=== PATIENT | male | born 1975 | race American Indian/Alaskan Native ===

== ENCOUNTER 2017-01-27 20:07 | Emergency (ER) | payer SELFPAY ==
--- NOTE | 2017-01-27 20:40 | C.PDOC ---
History Of Present Illness 41 yr old male presents to the ER stating "I want my head check". Patient states he has been binging on PCP, Etoh and marijuana "all week". Patient states "my head felt cloudy and locked up" for the past several days but has now resolved. Patient denies SI, HI, SA, chest pain, SOB, nausea, vomiting, weakness or numbness. "I WANT MY HEAD CHECKED". PS BINGING ON PCP, ETOH AND MARIJUANA "ALL WEEK". PS "MY HEAD FELT CLOUDY AND LOCKED UP" X SEV DAYS NOW RESOLVED. DENIES SI, SA EXAM PSYCH CALM COOPERATIVE NO ACTIVE PSYCHOSIS, SI/SA NEURO NO FOCAL DEF GAIT WNL REMAINDER NEG Time Seen by Provider: 01/27/17 20:22 Chief Complaint (Nursing): Substance Abuse History Per: Patient History/Exam Limitations: no limitations Onset/Duration Of Symptoms: Days Suicide/Self Injury Attempted (Context): None Modifying Factor(s): Alcohol, Marijuana Past Medical History Reviewed: Historical Data, Nursing Documentation, Vital Signs Vital Signs: Last Vital Signs Temp 98.7 F 01/27/17 20:13 Pulse 78 01/27/17 20:13 Resp 18 01/27/17 20:13 BP 155/83 H 01/27/17 20:13 Pulse Ox 99 01/27/17 21:28 Family History: States: No Known Family Hx - Social History Hx Tobacco Use: Yes Hx Alcohol Use: Yes Hx Substance Use: Yes - Immunization History Hx Tetanus Toxoid Vaccination: No Hx Influenza Vaccination: No Hx Pneumococcal Vaccination: No Review Of Systems Except As Marked, All Systems Reviewed And Found Negative. Cardiovascular: Negative for: Chest Pain Respiratory: Negative for: Shortness of Breath Gastrointestinal: Negative for: Nausea, Vomiting Neurological: Negative for: Weakness, Numbness Physical Exam - Physical Exam Appears: Non-toxic, No Acute Distress Skin: Warm, Dry, No Rash Head: Atraumatic, Normacephalic Oral Mucosa: Moist Respiratory: Normal Breath Sounds, No Rales, No Rhonchi, No Stridor, No Wheezing Extremity: Normal ROM, No Swelling Neurological/Psych: Oriented x3, Normal Speech, Normal Motor, Normal Sensation, Other (Calm. Cooperative. No active psychosis, SI/SA.) Gait: Steady ED Course And Treatment - Laboratory Results Result Diagrams: 01/27/17 21:05 01/27/17 21:05 O2 Sat by Pulse Oximetry: 99 (RA) Pulse Ox Interpretation: Normal - CT Scan/US CT - Head Other Rad Studies (CT/US): Read By Radiologist, Radiology Report Reviewed CT/US Interpretation: EXAM: CT Head Without Intravenous Contrast. CLINICAL HISTORY: 41 years old, male; Signs and symptoms; Altered mental status/memory loss; Additional info: AMS. TECHNIQUE: Axial computed tomography images of the head/brain without intravenous contrast. All CT scans at. this facility use one or more dose reduction techniques, viz.: automated exposure control; ma/ kV. adjustment per patient size (including targeted exams where dose is matched to indication; i.e. head);. or iterative reconstruction technique. COMPARISON: No relevant prior studies available. FINDINGS: Brain: Mild atrophy. No intracranial hemorrhage. No mass. No definite edema. Ventricles: No hydrocephalus. Bones/joints: No acute fracture. Soft tissues: Unremarkable. Sinuses: No acute sinusitis. Mastoid air cells: No mastoid effusion. Orbits: Unremarkable as visualized. IMPRESSION: 1. No acute intracranial abnormality. 2. Incidental/non-acute findings are described above. Progress - Re-Evaluation Re-evaluation Note: 01/27/17 21:55 CALM COOPERATIVE NO ACUTE INTOX. - Data Reviewed Data Reviewed: Lab, Diagnostic imaging, Old records Medical Decision Making Medical Decision Making: PLAN: * CT - Head * Alcohol Serum * Drug Screen * CBC * CMP * Urinalysis Disposition Counseled Patient/Family Regarding: Studies Performed, Diagnosis, Need For Followup - Disposition Referrals: Pending Sale To [facility] [Outside] [facility] [place] [Outside] Disposition: HOME/ ROUTINE Disposition Time: 21:56 Condition: IMPROVED Instructions: Polysubstance Abuse (ED) Forms: [employer] (Bengali) - Clinical Impression Clinical Impression: Polysubstance abuse - Scribe Statement The provider has reviewed the documentation as recorded by the Willieibe Cheryle Polo Provider Attestation: All medical record entries made by the Fiona were at my direction and personally dictated by me. I have reviewed the chart and agree that the record accurately reflects my personal performance of the history, physical exam, medical decision making, and the department course for this patient. I have also personally directed, reviewed, and agree with the discharge instructions and disposition.
[2017-01-27 21:08] LABS: BASO # 0.1 K/uL (0.0-0.2); BASO % 1.1 % (0.0-2.0); EOS % 0.8 % (0.0-4.0); HEMATOCRIT 41.4 % (35.0-51.0); LYMPH # 1.2 K/uL (1.0-4.3); LYMPH % 25.5 % (20.0-40.0); MEAN CELL VOLUME 97.4 fL (80.0-94.0); MEAN CORPUSCULAR HEMOGLOBIN 33.7 pg (27.0-31.0); MEAN CORPUSCULAR HGB CONC 34.6 g/dL (33.0-37.0); MONO # 0.8 K/uL (0.0-0.8); MONO % 16.7 % (0.0-10.0); NRBC % 0.1 % (0.0-2.0); RED CELL DISTRIBUTION WIDTH 14.4 % (11.5-14.5); WHITE BLOOD COUNT 4.8 K/uL (4.8-10.8)
[2017-01-27 21:16] LABS: RBC URINE 1 /hpf (0-3); URINE BACTERIA RARE (<OCC); URINE BILIRUBIN NEGATIVE (NEGATIVE); URINE BLOOD NEGATIVE (NEGATIVE); URINE COLOR Yellow (YELLOW); URINE GLUCOSE (UA) NORMAL (Normal); URINE KETONE NEGATIVE (NEGATIVE); URINE LEUKOCYTE ESTERASE NEG Leu/uL (Negative); URINE PROTEIN 1+ mg/dL (NEGATIVE); URINE UROBILINOGEN NORMAL mg/dL (0.2-1.0); WBC URINE 5 /hpf (0-5)
[2017-01-27 21:21] LABS: ALB/GLOB RATIO 1.4 (1.0-2.1); ALCOHOL SERUM 101 mg/dl (0-10); ALKALINE PHOSPHATASE 55 U/L (38-126); ALT/SGPT 41 U/L (21-72); AST/SGOT 55 U/L (17-59); BILIRUBIN,TOTAL 0.7 mg/dL (0.2-1.3); BLOOD UREA NITROGEN 8 mg/dL (9-20); CALCIUM 8.6 mg/dl (8.6-10.4); CARBON DIOXIDE 23 mmol/L (22-30); CHLORIDE 103 mmol/L (98-107); GFR AFRICAN-AMERICAN > 60; GLUCOSE,RANDOM 81 mg/dL (75-110); POTASSIUM 3.8 mmol/L (3.6-5.2); SODIUM 137 mmol/L (132-148); TOTAL PROTEIN 7.7 g/dL (6.3-8.3)
--- NOTE | 2017-01-27 21:27 | CT ---
EXAM: CT Head Without Intravenous Contrast CLINICAL HISTORY: 41 years old, male; Signs and symptoms; Altered mental status/memory loss; Additional info: AMS TECHNIQUE: Axial computed tomography images of the head/brain without intravenous contrast. All CT scans at this facility use one or more dose reduction techniques, viz.: automated exposure control; ma/kV adjustment per patient size (including targeted exams where dose is matched to indication; i.e. head); or iterative reconstruction technique. COMPARISON: No relevant prior studies available. FINDINGS: Brain: Mild atrophy. No intracranial hemorrhage. No mass. No definite edema. Ventricles: No hydrocephalus. Bones/joints: No acute fracture. Soft tissues: Unremarkable. Sinuses: No acute sinusitis. Mastoid air cells: No mastoid effusion. Orbits: Unremarkable as visualized. IMPRESSION: 1. No acute intracranial abnormality. 2. Incidental/non-acute findings are described above.
[2017-01-27 22:12] VITALS: BP 145/80; PULSE 75; RESP 16; TEMP 98; O2SAT 98
== END 2017-01-27 22:14 | disposition home or self-care (01) ==
LOC: C.ER 20:07
DX: F19.10 Other psychoactive substance abuse, uncomplicated (principal)
CPT/HCPCS: 70450; 80053; 81001; 85025; 99283; G0480

== ENCOUNTER 2017-08-16 09:37 | Emergency (ER) | payer OTHER ==
[2017-08-16 09:45] VITALS: BP 123/77; PULSE 106; RESP 20; TEMP 99.3; O2SAT 98
--- NOTE | 2017-08-16 10:08 | C.PDOC ---
History Of Present Illness Patient presents to ED c/o numbness in his right foot for approx 6 years. He states he fell and injured his right foot 6 years ago, was not evaluated by doctor/hospital at the time. Since then he has experienced numbness. He denies new injuries/falls, rash, fever, calf pain/tenderness, foot/ankle pain. Time Seen by Provider: 08/16/17 09:46 Chief Complaint (Nursing): Lower Extremity Problem/Injury History Per: Patient History/Exam Limitations: no limitations Onset/Duration Of Symptoms: Other (6 years ) Current Symptoms Are (Timing): Still Present Severity: Mild Past Medical History Reviewed: Historical Data, Nursing Documentation, Vital Signs Vital Signs: Last Vital Signs Temp 99.3 F 08/16/17 09:42 Pulse 106 H 08/16/17 09:42 Resp 20 08/16/17 09:42 BP 123/77 08/16/17 09:42 Pulse Ox 98 08/16/17 10:08 - Medical History PMH: No Chronic Diseases Family History: States: No Known Family Hx - Social History Hx Tobacco Use: Yes Hx Alcohol Use: Yes Hx Substance Use: Yes - Immunization History Hx Tetanus Toxoid Vaccination: No Hx Influenza Vaccination: No Hx Pneumococcal Vaccination: No Review Of Systems Constitutional: Negative for: Fever, Chills Cardiovascular: Negative for: Chest Pain Respiratory: Negative for: Shortness of Breath Gastrointestinal: Negative for: Nausea, Vomiting Skin: Negative for: Rash Neurological: Positive for: Numbness (right foot numbness). Negative for: Weakness Physical Exam - Physical Exam Appears: Well, Non-toxic, No Acute Distress Skin: Normal Color, Warm, Dry, No Rash Cardiovascular: Rhythm Regular Respiratory: Normal Breath Sounds, No Rales, No Rhonchi, No Wheezing Extremity: Normal ROM, No Tenderness, No Pedal Edema, No Calf Tenderness, Capillary Refill (< 2 sec all digits ), No Deformity Extremity: Bilateral: Atraumatic, Normal Color And Temperature, Normal ROM Pulses: Left Dorsalis Pedis: Normal, Right Dorsalis Pedis: Normal Neurological/Psych: Oriented x3, Normal Motor, No Normal Sensation (mildly decreased sensation right medial foot ) Gait: Steady ED Course And Treatment O2 Sat by Pulse Oximetry: 98 (RA) Pulse Ox Interpretation: Normal Progress Note: Patient instructed to follow up with podiatry within 1 week for his chronic right foot numbness. He understands he should return to Ed if his symptoms worsen. Disposition Counseled Patient/Family Regarding: Diagnosis, Need For Followup - Disposition Referrals: Podiatry Clinic [Outside] Disposition: HOME/ ROUTINE Disposition Time: 10:10 Condition: STABLE Additional Instructions: FOLLOW UP WITH PODIATRY WITHIN 1 WEEK RETURN TO ER IF SYMPTOMS WORSEN Instructions: Paresthesias (DC) Forms: [employer] (Telugu) Print Language: BENGALI - Clinical Impression Clinical Impression: Paresthesia of right foot
== END 2017-08-16 10:14 | disposition home or self-care (01) ==
LOC: C.ER 09:37
DX: R20.2 Paresthesia of skin (principal)

== ENCOUNTER 2018-04-24 12:05 | Emergency (ER) | payer MEDICAID, OTHER ==
[2018-04-24 12:13] VITALS: TEMP 99.1; O2SAT 97
[2018-04-24] MEDS ORDERED: Sodium Chloride 0.9% 1,000 ML IV STA (13:13)
--- NOTE | 2018-04-24 13:19 | C.PDOC ---
History Of Present Illness 42 y/o M p/w lightheadedness x 1 day. Denies LOC, chest pain, dyspnea, bleeding, vomiting. States does not eat much typically. Had juice in ED, states feels better now without symptoms. Time Seen by Provider: 04/24/18 12:35 Chief Complaint (Nursing): Dizziness/Lightheaded Past Medical History Vital Signs: Last Vital Signs Temp 99.1 F 04/24/18 12:07 Pulse 97 H 04/24/18 12:07 Resp 18 04/24/18 12:07 BP 120/77 04/24/18 12:07 Pulse Ox 97 04/24/18 12:07 - Medical History PMH: Denies: Diabetes, Hepatitis, HIV, HTN, Chronic Kidney Disease, Seizures, Sexually Transmitted Disease Family History: States: No Known Family Hx - Social History Hx Tobacco Use: Yes Hx Alcohol Use: Yes Hx Substance Use: Yes - Immunization History Hx Tetanus Toxoid Vaccination: No Hx Influenza Vaccination: No Hx Pneumococcal Vaccination: No Review Of Systems Except As Marked, All Systems Reviewed And Found Negative. Constitutional: Negative for: Fever Cardiovascular: Negative for: Chest Pain Physical Exam - Physical Exam Additional Physical Exam Comments: Constitutional: No acute distress. Head: Normocephalic. Atraumatic. Eyes: PERRL. ENT: Moist mucous membranes. Neck: Supple. Cardiovascular: Regular rate. Radial pulse 2+ bilaterally. Chest: No tenderness. Respiratory: Clear to auscultation bilaterally. GI: Soft. Nontender. Nondistended. Back: No CVA tenderness. Musculoskeletal: No tenderness or swelling of extremities. Skin: No rash. Neurologic: Alert, no focal deficit. ED Course And Treatment - Laboratory Results Result Diagrams: 04/24/18 13:23 04/24/18 13:23 O2 Sat by Pulse Oximetry: 97 Medical Decision Making Medical Decision Making: EKG NSR 85 bpm, no ST/T wave changes. Discharged home, f/u primary care, return to ED for worsening pain, dyspnea, LOC, vomiting, or any other problem. Disposition - Disposition Referrals: [facility] [Outside] Disposition: HOME/ ROUTINE Disposition Time: 14:10 Condition: STABLE Instructions: Near Fainting Forms: [employer] (Cayman) [employer] (Latvian) - Clinical Impression Clinical Impression: Lightheaded
[2018-04-24] MEDS ORDERED: Sodium Chloride 0.9% 1,000 ML ONE (13:25)
[2018-04-24 13:26] LABS: BASO # 0.1 K/uL (0.0-0.2); BASO % 1.3 % (0.0-2.0); EOS % 0.5 % (0.0-4.0); HEMOGLOBIN 12.6 g/dL (12.0-18.0); LYMPH # 1.9 K/uL (1.0-4.3); LYMPH % 32.1 % (20.0-40.0); MEAN CORPUSCULAR HEMOGLOBIN 31.8 pg (27.0-31.0); MEAN CORPUSCULAR HGB CONC 33.7 g/dL (33.0-37.0); MEAN PLATELET VOLUME 10.1 fL (7.2-11.7); MONO # 0.4 K/uL (0.0-0.8); MONO % 7.2 % (0.0-10.0); NEUT # 3.4 K/uL (1.8-7.0); NEUT % 58.9 % (50.0-75.0); RBC 3.98 Mil/uL (4.40-5.90); RED CELL DISTRIBUTION WIDTH 14.2 % (11.5-14.5); WHITE BLOOD COUNT 5.8 K/uL (4.8-10.8)
[2018-04-24 13:31] LABS: MEAN CELL VOLUME 94.3 fL (80.0-94.0)
[2018-04-24 13:41] LABS: ALB/GLOB RATIO 1.5 (1.0-2.1); ALBUMIN 4.5 g/dL (3.5-5.0); ALT/SGPT 25 U/L (21-72); AST/SGOT 43 U/L (17-59); BLOOD UREA NITROGEN 11 mg/dL (9-20); CALCIUM 8.9 mg/dl (8.6-10.4); GFR NON-AFRICAN AMERICAN > 60
[2018-04-24 14:17] VITALS: BP 128/72; PULSE 75; RESP 14
--- NOTE | 2018-04-25 20:23 | CARD ---
APPROVED REPORT Date of service: 04/24/2018 EKG Measurement Heart [id number] <Conclusion> Normal sinus rhythm Normal ECG
== END 2018-04-24 14:46 | disposition home or self-care (01) ==
LOC: C.ER 12:05
DX: R42 Dizziness and giddiness (principal); Z72.0 Tobacco use
CPT/HCPCS: 80053; 82948; 85025; 93005; 96360; 99285; J7030